=== PATIENT | male | born 1960 | race Hispanic/Latino ===

== ENCOUNTER 2018-01-12 16:38 | Inpatient (IN) | payer BC ==
[2018-01-12 17:58] VITALS: BMI 27.6
[2018-01-12] MEDS ORDERED: Ciprofloxacin 400mg/200ml D5W 400 MG/200 ML BAG IVPB STA (18:46)
[2018-01-12] MEDS ORDERED: metroNIDAZOLE IV 500 mg/100 ml 500 MG/100 ML BAG IVPB STA (18:46)
--- NOTE | 2018-01-12 19:41 | ED PDOC ---
Arrival/HPI - General Chief Complaint: GI Problem Time Seen by Provider: 01/12/18 17:57 Historian: Patient - History of Present Illness Narrative History of Present Illness (Text): 01/12/18 19:34 A 57 year old male presents to the emergency department for further evaluation concerning diverticultits. Patient was seen at [facility] for left lower abdominal pain today. He had labs and a CT done which showed a white count and moderate acute diverticulits with no abscess. Patient was then instructed to come to the emergency room for admission. Patient denies any fever, chills, nausea, vomiting , diarrhea, chest pain, shortness of breath or any other complaints. No history of abdominal surgeries. PMD: Dr. Ronni Medina Grounds Worker: Dr. Kirkpatrick Past Medical History - Provider Review Nursing Documentation Reviewed: Yes - Infectious Disease Hx of Infectious Diseases: None - Cardiac Hx Pacemaker: No - Pulmonary Other/Comment: borderline COPD - HEENT Hx Sinusitis: Yes - Hematological/Oncological Hx Blood Transfusions: No Hx Blood Transfusion Reaction: No - Musculoskeletal/Rheumatological Hx Musculoskeletal Disorders: Yes - Psychiatric Hx Substance Use: No - Anesthesia Hx Anesthesia Reactions: No Hx Malignant Hyperthermia: No Family/Social History - Physician Review Nursing Documentation Reviewed: Yes Family/Social History: No Known Family HX Smoking Status: Unknown If Ever Smoked Hx Alcohol Use: Yes (SOCIALLY) Hx Substance Use: No Allergies/Home Meds Allergies/Adverse Reactions: Allergies prednisone Allergy (Verified 01/12/18 18:32) RASH Home Medications: Home Meds Medication Instructions Recorded Confirmed Dexlansoprazole [Dexilant] 30 mg PO Q48H 08/21/15 08/21/15 Dexlansoprazole [Dexilant] 60 mg PO Q48H 08/21/15 08/21/15 Fluticasone Propionate [Flonase] 2 spray NS DAILY 08/21/15 08/21/15 Fluticasone/Salmeterol 250/50 1 puff IH QAM 08/21/15 08/21/15 [Advair Diskus] Montelukast [Singulair] 10 mg PO QAM 08/21/15 08/21/15 Review of Systems - Physician Review All systems were reviewed & negative as marked: Yes - Review of Systems Constitutional: absent: Fevers, Night Sweats Respiratory: absent: SOB Cardiovascular: absent: Chest Pain Gastrointestinal: Abdominal Pain (left lower abdomen). absent: Diarrhea, Nausea , Vomiting Physical Exam Vital Signs Reviewed: Yes Vital Signs Temp Pulse Resp BP Pulse Ox 01/12/18 20:26 94 H 18 152/70 H 96 01/12/18 17:47 98.2 F 108 H 18 161/99 H 98 Temperature: Afebrile Blood Pressure: Hypertensive Pulse: Tachycardic Respiratory Rate: Normal Appearance: Positive for: Well-Appearing, Non-Toxic, Comfortable Pain Distress: None Mental Status: Positive for: Alert and Oriented X 3 - Systems Exam Head: Present: Atraumatic, Normocephalic Pupils: Present: PERRL Extroacular Muscles: Present: EOMI Conjunctiva: Present: Normal Mouth: Present: Moist Mucous Membranes Neck: Present: Normal Range of Motion Respiratory/Chest: Present: Clear to Auscultation, Good Air Exchange. No: Respiratory Distress, Accessory Muscle Use Cardiovascular: Present: Regular Rate and Rhythm, Normal S1, S2. No: Murmurs Abdomen: Present: Tenderness (LLQ tenderness to palpation), Normal Bowel Sounds. No: Distention, Peritoneal Signs, Rebound, Guarding Back: Present: Normal Inspection Upper Extremity: Present: Normal Inspection. No: Cyanosis, Edema Lower Extremity: Present: Normal Inspection. No: Edema Neurological: Present: GCS=15, CN II-XII Intact, Speech Normal Skin: Present: Warm, Dry, Normal Color. No: Rashes Psychiatric: Present: Alert, Oriented x 3, Normal Insight, Normal Concentration Medical Decision Making ED Course and Treatment: 01/12/18 19:34 Impression: A 57 year old male sent in for diverticulitis. Patient with left lower abdominal pain. No nausea, vomiting or diarrhea. Plan: -- Cipro IV, Flagyl IV -- Reassess and disposition Progress Notes: Outpatient CT A/P : Moderate diverticulitis of the sigmoid colon with associated microperforation but no abscess. Outpatient labs: CBC: WBC 11.1 / Hgb 17 / Hct 50 / Plt 240 Chem: NA 140 / K 3.5 / Cl 106 CO2 23 / BUN 14 / Creat 1.0 / glucose [address] Diaz, who accepts admission to his service. Requests Dr. Mckeon for surgical consult. Bridge orders placed. CAse d/w Dr. Kirkpatrick, who accepts consult and will evaluate the patient in the hospital. Spoke with Ticket Scheduler Kelvin, states he will evaluate patient at bedside. On reevaluation, patient is laying comfortably in no acute distress. Patient has no other complaints at this time. On exam, abdomen remained soft, no distention, mild left lower quadrant tenderness, no guarding. Patient states he fully agrees with and understands discharge plan for inpatient admission. I have given the patient opportunity to ask any additional questions. - Medication Orders Current Medication Orders: Acetaminophen (Tylenol 325mg Tab) 650 mg PO Q6H PRN PRN Reason: Fever >100.4 F Arformoterol Tartrate (Brovana) 15 mcg IH DAILY FRED Budesonide (Pulmicort Respules) 0.5 mg IH DAILY FRED Ciprofloxacin (Cipro 400mg/200ml Dsw) 400 mg in 200 mls @ 133.3 mls/hr IVPB Q12 FRED PRN Reason: Protocol Stop: 01/16/18 11:31 Last Admin: 01/13/18 09:18 Dose: Lactated Ringer's (Lactated Ringer's) 1,000 mls @ 75 mls/hr IV .[id number] [facility] Last Admin: 01/13/18 13:12 Dose: 75 mls/hr eMAR Start Stop Document 01/13/18 13:12 [facility] (Rec: 01/13/18 13:12 [facility]-[id number]) Intravenous Solution Start Date 01/13/18 Start Time 13:12 Metronidazole (Flagyl) 500 mg in 100 mls @ 100 mls/hr IVPB Q8 FRED PRN Reason: Protocol Last Admin: 01/13/18 13:00 Dose: 100 mls/hr eMAR Start Stop Document 01/13/18 13:00 [facility] (Rec: 01/13/18 13:00 [id number]) Intravenous Solution Start Date 01/13/18 Start Time 13:00 End Date 01/13/18 End time 14:00 Total Infusion Time 60 Montelukast Sodium (Singulair) 10 mg PO QAM [facility] Last Admin: 01/13/18 09:19 Dose: 10 mg Discontinued Medications Arformoterol Tartrate (Brovana) 15 mcg IH [id number] [facility] Last Admin: 01/13/18 07:55 Dose: 15 mcg Budesonide (Pulmicort Respules) 0.5 mg IH [id number] FRED Last Admin: 01/13/18 07:55 Dose: 0.5 mg Ciprofloxacin (Cipro 400mg/200ml Dsw) 400 mg in 200 mls @ 133.3 mls/hr IVPB STAT STA PRN Reason: Protocol Stop: 01/12/18 20:16 Last Admin: 01/12/18 21:11 Dose: 133.3 mls/hr eMAR Start Stop Document 01/12/18 21:11 KP (Rec: 01/12/18 21:11 KP [id number]) Intravenous Solution Start Date 01/12/18 Start Time 21:11 Metronidazole (Flagyl) 500 mg in 100 mls @ 100 mls/hr IVPB STAT STA PRN Reason: Protocol Stop: 01/12/18 19:45 Last Admin: 01/12/18 20:22 Dose: 100 mls/hr eMAR Start Stop Document 01/12/18 20:22 RG (Rec: 01/12/18 20:23 RG [id number]) Intravenous Solution Start Date 01/12/18 Start Time 20:23 Ciprofloxacin (Cipro 400mg/200ml Dsw) 400 mg in 200 mls @ 133.3 mls/hr IVPB Q12 FRED PRN Reason: Protocol Stop: 01/16/18 11:31 Metronidazole (Flagyl) 500 mg in 100 mls @ 100 mls/hr IVPB Q6 FRED PRN Reason: Protocol Last Admin: 01/13/18 05:01 Dose: 100 mls/hr eMAR Start Stop Document 01/13/18 05:01 KP (Rec: 01/13/18 05:02 KP [id number]) Intravenous Solution Start Date 01/13/18 Start Time 05:02 Lactated Ringer's (Lactated Ringer's) 1,000 mls @ 125 mls/hr IV .Q8H FRED Last Admin: 01/13/18 05:02 Dose: 125 mls/hr eMAR Start Stop Document 01/13/18 05:02 KP (Rec: 01/13/18 05:02 KP [id number]) Intravenous Solution Start Date 01/13/18 Start Time 05:02 Ketorolac Tromethamine (Toradol) 15 mg IVP STAT STA Stop: 01/12/18 20:25 Last Admin: 01/12/18 20:32 Dose: - PA / CRUCIBLE PACKER / Resident Statement MD/DO has reviewed & agrees with the documentation as recorded. - Scribe Statement The provider has reviewed the documentation as recorded by the Efraínibdiana Nielson Provider Scribe Attestation: All medical record entries made by the Scribe were at my direction and personally dictated by me. I have reviewed the chart and agree that the record accurately reflects my personal performance of the history, physical exam, medical decision making, and the department course for this patient. I have also personally directed, reviewed, and agree with the discharge instructions and disposition. Disposition/Present on Arrival - Present on Arrival Any Indicators Present on Arrival: No History of DVT/PE: No History of Uncontrolled Diabetes: No Urinary Catheter: No History of Decub. Ulcer: No History Surgical Site Infection Following: None - Disposition Have Diagnosis and Disposition been Completed?: Yes Diagnosis: Diverticulitis Disposition: HOSPITALIZED Disposition Time: 19:17 Patient Plan: Admission Patient Problems: Current Active Problems Problem Status Onset Diverticulitis Acute Condition: STABLE
[2018-01-12] MEDS ORDERED: Budesonide 0.5 mg/2 ml Inhal Susp UD IH SCH (20:00)
[2018-01-12] MEDS ORDERED: Arformoterol 15 mcg/2 ml Inh Sol IH SCH (20:00)
[2018-01-12 20:17] LABS: URINE BILIRUBIN NEGATIVE (NEGATIVE); URINE BLOOD TRACE-INTACT (NEGATIVE); URINE GLUCOSE (UA) NEGATIVE (NEGATIVE); URINE LEUKOCYTE ESTERASE NEGATIVE Leu/uL (NEGATIVE); URINE PROTEIN NEGATIVE mg/dL (<30 mg/dL); URINE UROBILINOGEN 0.2 E.U./dL (<1 E.U./dL)
[2018-01-12 20:22] LABS: URINE APPEARANCE CLEAR (CLEAR); URINE COLOR LIGHT YELLOW (YELLOW)
[2018-01-12 20:24] LABS: BASO # 0.04 K/mm3 (0.0-2.0); BASO % 0.3 % (0.0-3.0); EOS # 1.2 (0.0-0.7); EOS % 8.8 % (1.5-5.0); GRAN # 9.06 (1.4-6.5); GRAN % 68.6 % (50.0-68.0); HEMOGLOBIN 16.2 g/dL (14.0-18.0); LYMPH % 14.8 % (22.0-35.0); MEAN CELL VOLUME 93.8 fl (80.0-105.0); MEAN CORPUSCULAR HEMOGLOBIN 33.5 pg (25.0-35.0); MEAN CORPUSCULAR HGB CONC 35.7 g/dl (31.0-37.0); MEAN PLATELET VOLUME 8.6 fl (7.0-11.0); MONO % 7.5 % (1.0-6.0); RBC 4.84 10^6/uL (3.5-6.1); RED CELL DISTRIBUTION WIDTH 12.5 % (11.5-14.5); WHITE BLOOD COUNT 13.2 10^3/ul (4.5-11.0)
[2018-01-12 20:32] LABS: ALB/GLOB RATIO 1.2 (1.1-1.8); ALBUMIN 3.6 g/dL (3.0-4.8); ALT/SGPT 30 U/L (7-56); AST/SGOT 26 U/L (17-59); BLOOD UREA NITROGEN 11 mg/dL (7-21); CALCIUM 9.2 mg/dL (8.4-10.5); GFR AFRICAN-AMERICAN > 60; GFR NON-AFRICAN AMERICAN > 60
[2018-01-12 20:48] LABS: URINE BACTERIA NEG (NEG); URINE EPITHELIAL CELLS 0 - 2 /hpf (0-5); URINE RBC 0 - 2 /hpf (0-2); URINE WBC 0 - 2 /hpf (0-6)
[2018-01-12] MEDS: Lactated Ringer's 1,000 ML IV SCH (21:00)
[2018-01-12] MEDS ORDERED: Ciprofloxacin 400mg/200ml D5W 400 MG/200 ML BAG IVPB SCH (22:00)
--- NOTE | 2018-01-12 23:14 | CP.PCM.CON ---
History of Present Illness - History of Present Illness History of Present Illness: Gen Surg Consult: Dr. Mckeon 57M [place] [facility] after being advised by Josesito SIMENTAL to come to the ER. Patient reports he developed abdominal pain yesterday. States he had a fever of 100.4. Since abdominal pain did not improve he decided to go to urgent care center where they did a CT scan. Patient was found to have acute diverticulitis and was told to come to the ER. At time time of examination patient reported some left lower quadrant abdominal pain. Currently he denies fever/chills, nausea/vomiting. Last colonoscopy done was in 2008, however, patient does not remember results. PMH: as stated above PSH: denies Allergies: NKDA Review of Systems - Review of Systems Review of Systems: 12pt ROS unremarkable, except as stated in HPI Past Patient History - Infectious Disease Hx of Infectious Diseases: None - Past Social History Smoking Status: Unknown If Ever Smoked - CARDIAC Hx Pacemaker: No - PULMONARY Other/Comment: borderline COPD - HEENT Hx Sinusitis: Yes - HEMATOLOGICAL/ONCOLOGICAL Hx Blood Transfusions: No Hx Blood Transfusion Reaction: No - MUSCULOSKELETAL/RHEUMATOLOGICAL Hx Musculoskeletal Disorders: Yes - PSYCHIATRIC Hx Substance Use: No - SURGICAL HISTORY Hx Surgeries: Yes - ANESTHESIA Hx Anesthesia Reactions: No Hx Malignant Hyperthermia: No Meds Allergies/Adverse Reactions: Allergies Allergy/AdvReac Type Severity Reaction Status Date / Time prednisone Allergy RASH Verified 01/12/18 18:32 - Medications Medications: Current Medications Acetaminophen (Tylenol 325mg Tab) 650 mg PO Q6H PRN PRN Reason: Fever >100.4 F Arformoterol Tartrate (Brovana) 15 mcg IH [id number] FRED Budesonide (Pulmicort Respules) 0.5 mg IH [id number] FRED Metronidazole (Flagyl) 500 mg in 100 mls @ 100 mls/hr IVPB Q6 FRED PRN Reason: Protocol Lactated Ringer's (Lactated Ringer's) 1,000 mls @ 125 mls/hr IV .Q8H FRED Ciprofloxacin (Cipro 400mg/200ml Dsw) 400 mg in 200 mls @ 133.3 mls/hr IVPB Q12 FRED PRN Reason: Protocol Stop: 01/16/18 11:31 Montelukast Sodium (Singulair) 10 mg PO QAM FRED Physical Exam - Constitutional Appears: Well, No Acute Distress - Head Exam Head Exam: NORMOCEPHALIC - Eye Exam Eye Exam: EOMI, Normal appearance - ENT Exam ENT Exam: Mucous Membranes Moist - Respiratory Exam Respiratory Exam: NORMAL BREATHING PATTERN - Cardiovascular Exam Cardiovascular Exam: +S1, +S2 - GI/Abdominal Exam GI & Abdominal Exam: Soft, Tenderness - Extremities Exam Extremities exam: Negative for: calf tenderness - Neurological Exam Neurological exam: Alert, Oriented x3 - Psychiatric Exam Psychiatric exam: Normal Mood - Skin Skin Exam: Dry, Normal Color, Warm Results - Vital Signs Recent Vital Signs: Last Vital Signs Temp 98.2 F 01/12/18 17:47 Pulse 94 H 01/12/18 20:26 Resp 18 01/12/18 20:26 BP 152/70 H 01/12/18 20:26 Pulse Ox 96 01/12/18 20:26 - Labs Result Diagrams: 01/12/18 20:10 01/12/18 20:10 Labs: Laboratory Results - last 24 hr 01/12/18 01/12/18 01/12/18 20:10 20:10 20:10 WBC 13.2 H RBC 4.84 Hgb 16.2 Hct 45.4 MCV 93.8 MCH 33.5 MCHC 35.7 RDW 12.5 Plt Count 201 MPV 8.6 Gran % 68.6 H Lymph % (Auto) 14.8 L Graham % (Auto) 7.5 H Eos % (Auto) 8.8 H Baso % (Auto) 0.3 Gran # 9.06 H Lymph # (Auto) 2.0 Graham # (Auto) 1.0 H Eos # (Auto) 1.2 H Baso # (Auto) 0.04 Sodium 139 Potassium 3.8 Chloride 104 Carbon Dioxide 26 Anion Gap 13 BUN 11 Creatinine 0.9 Est GFR ( Amer) > 60 Est GFR (Non-Af Amer) > 60 Random Glucose 89 Calcium 9.2 Total Bilirubin 1.0 AST 26 ALT 30 Alkaline Phosphatase 55 Total Protein 6.6 Albumin 3.6 Globulin 3.0 Albumin/Globulin Ratio 1.2 Urine Color Light yellow Urine Appearance Clear Urine pH 6.0 Ur Specific [place] <= 1.005 Urine Protein Negative Urine Glucose (UA) Negative Urine Ketones 40 H Urine Blood Trace-intact H Urine Nitrate Negative Urine Bilirubin Negative Urine Urobilinogen 0.2 Ur Leukocyte Esterase Negative Urine RBC 0 - 2 Urine WBC 0 - 2 Ur Epithelial Cells 0 - 2 Urine Bacteria Neg Assessment & Plan - Assessment and Plan (Free Text) Assessment: 57M with diverticulitis Plan: NPO IVF Abx Analgesic F/u GI recs Further recs per Dr. Mike Melgar PGY2
[2018-01-12] MEDS: metroNIDAZOLE IV 500 mg/100 ml 500 MG/100 ML BAG IVPB SCH (23:20)
[2018-01-13] MEDS: metroNIDAZOLE IV 500 mg/100 ml 500 MG/100 ML BAG IVPB SCH ×3 (05:01→22:28)
[2018-01-13] MEDS: Lactated Ringer's 1,000 ML IV SCH ×2 (05:02→13:12)
[2018-01-13] MEDS: Ciprofloxacin 400mg/200ml D5W 400 MG/200 ML BAG IVPB SCH ×2 (06:12→09:18)
[2018-01-13 07:24] LABS: HEMOGLOBIN 15.2 g/dL (14.0-18.0); MEAN CELL VOLUME 92.6 fl (80.0-105.0); MEAN CORPUSCULAR HEMOGLOBIN 33.3 pg (25.0-35.0); MEAN CORPUSCULAR HGB CONC 35.9 g/dl (31.0-37.0); MEAN PLATELET VOLUME 8.5 fl (7.0-11.0); RBC 4.57 10^6/uL (3.5-6.1); RED CELL DISTRIBUTION WIDTH 12.5 % (11.5-14.5); WHITE BLOOD COUNT 10.1 10^3/ul (4.5-11.0)
--- NOTE | 2018-01-13 07:41 | CP.PCM.PN ---
Subjective - Date & Time of Evaluation Date of Evaluation: 01/13/18 Time of Evaluation: 07:38 - Subjective Subjective: Surgery Progress Note: Patient seen and examined at bedside. No acute events overnight. Reports abdominal pain. Denies fever, chills, nausea, vomiting. Objective - Vital Signs/Intake and Output Vital Signs (last 24 hours): Temp Pulse Resp BP Pulse Ox 98.2 F 94 H 18 152/70 H 96 01/12/18 17:47 01/12/18 20:26 01/12/18 21:06 01/12/18 20:26 01/12/18 20:26 Intake and Output: 01/13/18 01/13/18 06:59 18:59 Intake Total 0 Balance 0 - Medications Medications: Current Medications Acetaminophen (Tylenol 325mg Tab) 650 mg PO Q6H PRN PRN Reason: Fever >100.4 F Arformoterol Tartrate (Brovana) 15 mcg IH [id number] FRED Budesonide (Pulmicort Respules) 0.5 mg IH [id number] FRED Metronidazole (Flagyl) 500 mg in 100 mls @ 100 mls/hr IVPB Q6 FRED PRN Reason: Protocol Last Admin: 01/13/18 05:01 Dose: 100 mls/hr Lactated Ringer's (Lactated Ringer's) 1,000 mls @ 125 mls/hr IV .Q8H FRED Last Admin: 01/13/18 05:02 Dose: 125 mls/hr Ciprofloxacin (Cipro 400mg/200ml Dsw) 400 mg in 200 mls @ 133.3 mls/hr IVPB Q12 FRED PRN Reason: Protocol Stop: 01/16/18 11:31 Last Admin: 01/13/18 06:12 Dose: 133.3 mls/hr Montelukast Sodium (Singulair) 10 mg PO QAM FRED - Labs Labs: 01/13/18 06:20 01/12/18 20:10 - Constitutional Appears: Non-toxic, No Acute Distress - Head Exam Head Exam: ATRAUMATIC, NORMOCEPHALIC - Eye Exam Eye Exam: EOMI, PERRL. absent: Conjunctival injection, Scleral icterus Pupil Exam: NORMAL ACCOMODATION, PERRL. absent: Fixed, Irregular, Unequal - ENT Exam ENT Exam: Mucous Membranes Moist - Neck Exam Neck Exam: Full ROM - Respiratory Exam Respiratory Exam: Clear to Ausculation Bilateral, NORMAL BREATHING PATTERN. absent: Accessory Muscle Use, Rhonchi, Wheezes, Stridor - Cardiovascular Exam Cardiovascular Exam: RRR, +S1, +S2. absent: Murmur - GI/Abdominal Exam GI & Abdominal Exam: Soft, Tenderness, Normal Bowel Sounds. absent: Guarding, Rigid, Organomegaly, Rebound - Extremities Exam Extremities Exam: Normal Inspection - Back Exam Back Exam: NORMAL INSPECTION - Neurological Exam Neurological Exam: Alert, Awake, Oriented x3 - Psychiatric Exam Psychiatric exam: Normal Affect, Normal Mood - Skin Skin Exam: Dry, Normal Color, Warm Assessment and Plan - Assessment and Plan (Free Text) Assessment: 57M with diverticulitis: NPO. IVF Continue with IV Abx Analgesic F/u GI recs Will discuss with Dr. Mckeon
--- NOTE | 2018-01-13 07:52 | CP.PCM.PN ---
Subjective - Date & Time of Evaluation Date of Evaluation: 01/13/18 Time of Evaluation: 07:49 - Subjective Subjective: Surgery Progress Note: Patient seen and examined at bedside. Pt's blood sugar low overnight, 38, given orange juice. Denies fever, chills, nausea, vomiting, diarrhea, wound drainage. Objective - Vital Signs/Intake and Output Vital Signs (last 24 hours): Temp Pulse Resp BP Pulse Ox 98.2 F 94 H 18 152/70 H 96 01/12/18 17:47 01/12/18 20:26 01/12/18 21:06 01/12/18 20:26 01/12/18 20:26 Intake and Output: 01/13/18 01/13/18 06:59 18:59 Intake Total 0 Balance 0 - Medications Medications: Current Medications Acetaminophen (Tylenol 325mg Tab) 650 mg PO Q6H PRN PRN Reason: Fever >100.4 F Arformoterol Tartrate (Brovana) 15 mcg IH [id number] FRED Budesonide (Pulmicort Respules) 0.5 mg IH [id number] FRED Metronidazole (Flagyl) 500 mg in 100 mls @ 100 mls/hr IVPB Q6 FRED PRN Reason: Protocol Last Admin: 01/13/18 05:01 Dose: 100 mls/hr Lactated Ringer's (Lactated Ringer's) 1,000 mls @ 125 mls/hr IV .Q8H FRED Last Admin: 01/13/18 05:02 Dose: 125 mls/hr Ciprofloxacin (Cipro 400mg/200ml Dsw) 400 mg in 200 mls @ 133.3 mls/hr IVPB Q12 FRED PRN Reason: Protocol Stop: 01/16/18 11:31 Last Admin: 01/13/18 06:12 Dose: 133.3 mls/hr Montelukast Sodium (Singulair) 10 mg PO QAM FRED - Labs Labs: 01/13/18 06:20 01/12/18 20:10 - Constitutional Appears: Non-toxic, No Acute Distress - Head Exam Head Exam: ATRAUMATIC, NORMOCEPHALIC - Eye Exam Eye Exam: EOMI, PERRL. absent: Conjunctival injection, Scleral icterus Pupil Exam: NORMAL ACCOMODATION, PERRL. absent: Irregular, Unequal - ENT Exam ENT Exam: Mucous Membranes Moist - Neck Exam Neck Exam: Full ROM - Respiratory Exam Respiratory Exam: Clear to Ausculation Bilateral, NORMAL BREATHING PATTERN. absent: Rales, Rhonchi, Wheezes - Cardiovascular Exam Cardiovascular Exam: RRR, +S1, +S2. absent: Murmur - GI/Abdominal Exam GI & Abdominal Exam: Soft, Normal Bowel Sounds. absent: Tenderness - Extremities Exam Extremities Exam: absent: Calf Tenderness Additional comments: LLE wound noted: no crepitus, fluctuance or discharge appreciated. - Back Exam Back Exam: NORMAL INSPECTION - Neurological Exam Neurological Exam: Alert, Awake, Oriented x3 - Psychiatric Exam Psychiatric exam: Normal Affect, Normal Mood - Skin Skin Exam: Dry, Normal Color, Warm Assessment and Plan - Assessment and Plan (Free Text) Assessment: 51M with chronic left lower extremity wound: -local wound care -apply medihoney to affected site -compression stockings -Will discuss with Dr. Mckeon
[2018-01-13 07:53] LABS: ALB/GLOB RATIO 1.2 (1.1-1.8); ALBUMIN 3.3 g/dL (3.0-4.8); ALT/SGPT 32 U/L (7-56); AST/SGOT 18 U/L (17-59); BLOOD UREA NITROGEN 11 mg/dL (7-21); GFR AFRICAN-AMERICAN > 60; GFR NON-AFRICAN AMERICAN > 60
[2018-01-13 08:27] VITALS: RESP 20
[2018-01-13] MEDS ORDERED: Arformoterol 15 mcg/2 ml Inh Sol IH SCH (10:00)
[2018-01-13] MEDS ORDERED: Budesonide 0.5 mg/2 ml Inhal Susp UD IH SCH (10:00)
[2018-01-13] MEDS ORDERED: Fluticasone-Salmeterol 250-50mcg Diskus IH SCH (10:00)
--- NOTE | 2018-01-13 16:03 | CP.PCM.CON ---
<Sharmila Gooden - Last Filed: 01/13/18 16:03> History of Present Illness - History of Present Illness History of Present Illness: S&E at bedside earlier today, chart reviewed. Request for GI consult is for diverticulitis. HPI: This is a 57-year-old male with a past medical history of GERD, diverticulosis came to the emergency room with the recommendation of jag Villeda, patient reports complaining of burning on urination no real abdominal pain [facility] had severe tenderness on abdominal examination. He rates it from 10 over 10. He denies any history of nausea, vomiting or change in bowel habits. His last bowel movement today and it was formed stool with no melena or bright red blood. He does report having a fever of 100.4. At [facility] he was sent for CT scan of abdomen and pelvis where he reports he has done [facility] urgent care and was reported to have diverticulitis with microperforation in the sigmoid colon. Patient denies any contributing factors such as oral intake, only thing he recalls eating is Indonesian food, had shrimp alicea mien, he does report that he has been finding and infection since October. He's been treated with steroids and Augmentin. He is currently nothing by mouth in no acute overnight events reported. He does report improvement of abdominal pain. His last colonoscopy was 2008 he was found to have hemorrhoids and diverticulosis. Last endoscopy was 08/2015, esophagus appeared like Leal's esophagus although the esophageal biopsies was negative for intestinal metaplasia. He was found to have a gastric polyp that was reported to be a fundic gland polyp, gastritis with gastric biopsy showing chronic inflammation but no intestinal metaplasia or H. pylori. Past medical history: Diverticulosis, GERD, internal hemorrhoids, , borderline COPD,superficial skin cancer, gastric polyp Past surgical history:sinus surgery Allergies: Prednisone Medications: Reviewed as per MAR Social history: No history of smoking, drinks alcohol socially, denies illicit drugs Family history: Noncontributory ROS: Systems reviewed with positive finding see HPI. Past Patient History - Infectious Disease Hx of Infectious Diseases: None - Past Social History Smoking Status: Unknown If Ever Smoked - CARDIAC Hx Pacemaker: No - PULMONARY Other/Comment: borderline COPD - NEUROLOGICAL Hx Neurological Disorder: No - HEENT Hx Sinusitis: Yes - RENAL Hx Chronic Kidney Disease: No - ENDOCRINE/METABOLIC Hx Endocrine Disorders: No - HEMATOLOGICAL/ONCOLOGICAL Hx Blood Transfusions: No Hx Blood Transfusion Reaction: No - INTEGUMENTARY Hx Dermatological Problems: No - MUSCULOSKELETAL/RHEUMATOLOGICAL Hx Musculoskeletal Disorders: Yes - GASTROINTESTINAL Hx Gastrointestinal Disorders: No - GENITOURINARY/GYNECOLOGICAL Hx Genitourinary Disorders: No - PSYCHIATRIC Hx Substance Use: No - SURGICAL HISTORY Hx Surgeries: Yes - ANESTHESIA Hx Anesthesia Reactions: No Hx Malignant Hyperthermia: No Meds Allergies/Adverse Reactions: Allergies Allergy/AdvReac Type Severity Reaction Status Date / Time prednisone Allergy RASH Verified 01/12/18 18:32 - Medications Medications: Current Medications Acetaminophen (Tylenol 325mg Tab) 650 mg PO Q6H PRN PRN Reason: Fever >100.4 F Arformoterol Tartrate (Brovana) 15 mcg IH DAILY FRED Budesonide (Pulmicort Respules) 0.5 mg IH DAILY [facility]ED Ciprofloxacin (Cipro 400mg/200ml Dsw) 400 mg in 200 mls @ 133.3 mls/hr IVPB Q12 [facility]ED PRN Reason: Protocol Stop: 01/16/18 11:31 Last Admin: 01/13/18 09:18 Dose: Not Given Lactated Ringer's (Lactated Ringer's) 1,000 mls @ 75 mls/hr IV .[id number] [facility]ED Last Admin: 01/13/18 13:12 Dose: 75 mls/hr Metronidazole (Flagyl) 500 mg in 100 mls @ 100 mls/hr IVPB Q8 FRED PRN Reason: Protocol Last Admin: 01/13/18 13:00 Dose: 100 mls/hr Montelukast Sodium (Singulair) 10 mg PO QAM [facility]ED Last Admin: 01/13/18 09:19 Dose: 10 mg Physical Exam - Constitutional Appears: No Acute Distress - Head Exam Head Exam: NORMOCEPHALIC - Eye Exam Eye Exam: Normal appearance. absent: Scleral icterus - ENT Exam ENT Exam: Mucous Membranes Moist - Neck Exam Neck exam: Positive for: Normal Inspection - Respiratory Exam Respiratory Exam: Clear to Auscultation Bilateral, NORMAL BREATHING PATTERN. absent: Respiratory Distress - Cardiovascular Exam Cardiovascular Exam: +S1, +S2 - GI/Abdominal Exam GI & Abdominal Exam: Normal Bowel Sounds, Soft. absent: Guarding, Organomegaly , Rebound, Tenderness - Extremities Exam Extremities exam: Positive for: pedal pulses present. Negative for: calf tenderness, pedal edema - Neurological Exam Neurological exam: Alert, Oriented x3 - Skin Skin Exam: Dry, Warm Results - Vital Signs Recent Vital Signs: Last Vital Signs Temp 99 F 01/13/18 08:25 Pulse 94 H 01/13/18 08:25 Resp 20 01/13/18 08:25 BP 123/84 01/13/18 08:25 Pulse Ox 96 01/13/18 08:25 - Labs Result Diagrams: 01/13/18 06:20 01/13/18 06:20 Labs: Laboratory Results - last 24 hr 01/12/18 01/12/18 01/12/18 20:10 20:10 20:10 WBC 13.2 H RBC 4.84 Hgb 16.2 Hct 45.4 MCV 93.8 MCH 33.5 MCHC 35.7 RDW 12.5 Plt Count 201 MPV 8.6 Gran % 68.6 H Lymph % (Auto) 14.8 L Sibley % (Auto) 7.5 H Eos % (Auto) 8.8 H Baso % (Auto) 0.3 Gran # 9.06 H Lymph # (Auto) 2.0 Sibley # (Auto) 1.0 H Eos # (Auto) 1.2 H Baso # (Auto) 0.04 Sodium 139 Potassium 3.8 Chloride 104 Carbon Dioxide 26 Anion Gap 13 BUN 11 Creatinine 0.9 Est GFR ( Amer) > 60 Est GFR (Non-Af Amer) > 60 Random Glucose 89 Calcium 9.2 Total Bilirubin 1.0 AST 26 ALT 30 Alkaline Phosphatase 55 Total Protein 6.6 Albumin 3.6 Globulin 3.0 Albumin/Globulin Ratio 1.2 Urine Color Light yellow Urine Appearance Clear Urine pH 6.0 Ur Specific Eldridge <= 1.005 Urine Protein Negative Urine Glucose (UA) Negative Urine Ketones 40 H Urine Blood Trace-intact H Urine Nitrate Negative Urine Bilirubin Negative Urine Urobilinogen 0.2 Ur Leukocyte Esterase Negative Urine RBC 0 - 2 Urine WBC 0 - 2 Ur Epithelial Cells 0 - 2 Urine Bacteria Neg 01/13/18 01/13/18 06:20 06:20 WBC 10.1 D RBC 4.57 Hgb 15.2 Hct 42.3 MCV 92.6 MCH 33.3 MCHC 35.9 RDW 12.5 Plt Count 196 MPV 8.5 Gran % Lymph % (Auto) Sibley % (Auto) Eos % (Auto) Baso % (Auto) Gran # Lymph # (Auto) Sibley # (Auto) Eos # (Auto) Baso # (Auto) Sodium 140 Potassium 3.5 L Chloride 106 Carbon Dioxide 22 Anion Gap 15 BUN 11 Creatinine 0.8 Est GFR ( Amer) > 60 Est GFR (Non-Af Amer) > 60 Random Glucose 107 Calcium 9.0 Total Bilirubin 1.0 AST 18 ALT 32 Alkaline Phosphatase 49 Total Protein 6.0 Albumin 3.3 Globulin 2.7 Albumin/Globulin Ratio 1.2 Urine Color Urine Appearance Urine pH Ur Specific Eldridge Urine Protein Urine Glucose (UA) Urine Ketones Urine Blood Urine Nitrate Urine Bilirubin Urine Urobilinogen Ur Leukocyte Esterase Urine RBC Urine WBC Ur Epithelial Cells Urine Bacteria Assessment & Plan - Assessment and Plan (Free Text) Assessment: Assessment: Acute diverticulitis with microperforation GERD History of gastric polyp History of COPD Plan: Continue IV antibiotics on Cipro and Flagyl Will start clear liquid diet On IV fluids Monitor bowel movements May benefit from colonoscopy in 6-8 weeks times when diverticulitis resolves Surgical follow-up Thank you for this consult and for allowing us to participate in your patient's care, further recommendations based on clinical course. Seen and discussed with Dr. Kirkpatrick. <Marleni Kirkpatrick V - Last Filed: 01/13/18 21:34> Meds - Medications Medications: Current Medications Acetaminophen (Tylenol 325mg Tab) 650 mg PO Q6H PRN PRN Reason: Fever >100.4 F Arformoterol Tartrate (Brovana) 15 mcg IH DAILY FRDE Budesonide (Pulmicort Respules) 0.5 mg IH DAILY FRED Ciprofloxacin (Cipro 400mg/200ml Dsw) 400 mg in 200 mls @ 133.3 mls/hr IVPB Q12 FRED PRN Reason: Protocol Stop: 01/16/18 11:31 Last Admin: 01/13/18 09:18 Dose: Not Given Lactated Ringer's (Lactated Ringer's) 1,000 mls @ 75 mls/hr IV .[id number] FRED Last Admin: 01/13/18 13:12 Dose: 75 mls/hr Metronidazole (Flagyl) 500 mg in 100 mls @ 100 mls/hr IVPB Q8 FRED PRN Reason: Protocol Last Admin: 01/13/18 13:00 Dose: 100 mls/hr Montelukast Sodium (Singulair) 10 mg PO QAM [facility] Last Admin: 01/13/18 09:19 Dose: 10 mg Results - Vital Signs Recent Vital Signs: Last Vital Signs Temp 97.9 F 01/13/18 14:00 Pulse 92 H 01/13/18 14:00 Resp 20 01/13/18 14:00 BP 131/89 01/13/18 14:00 Pulse Ox 95 01/13/18 14:00 - Labs Result Diagrams: 01/13/18 06:20 01/13/18 06:20 Labs: Laboratory Results - last 24 hr 01/13/18 01/13/18 06:20 06:20 WBC 10.1 D RBC 4.57 Hgb 15.2 Hct 42.3 MCV 92.6 MCH 33.3 MCHC 35.9 RDW 12.5 Plt Count 196 MPV 8.5 Sodium 140 Potassium 3.5 L Chloride 106 Carbon Dioxide 22 Anion Gap 15 BUN 11 Creatinine 0.8 Est GFR ( Amer) > 60 Est GFR (Non-Af Amer) > 60 Random Glucose 107 Calcium 9.0 Total Bilirubin 1.0 AST 18 ALT 32 Alkaline Phosphatase 49 Total Protein 6.0 Albumin 3.3 Globulin 2.7 Albumin/Globulin Ratio 1.2 Attending/Attestation - Attestation I have personally seen and examined this patient.: Yes I have fully participated in the care of the patient.: Yes I have reviewed all pertinent clinical information: Yes Notes (Text): This is an addendum to GI consult report dictated by Sharmila Gooden APN.The patient was seen and examined earlier. Medical records, lab studies, imagings were reviewed. Last 24 hours events reviewed. Agreed with the above treatment plan as outlined in Sharmila Gooden APN's notes with the addition of the following 01/13/18 21:34
--- NOTE | 2018-01-14 03:39 | HP ---
DATE OF EXAM: 01/13/2018 CHIEF COMPLAINT AND HISTORY OF PRESENT ILLNESS: This is a 57-year-old male who is coming into the hospital with abdominal pain. He states he had gone to an urgent care center for evaluation. The patient
[2018-01-14] MEDS: metroNIDAZOLE IV 500 mg/100 ml 500 MG/100 ML BAG IVPB SCH ×2 (05:13→13:49)
--- NOTE | 2018-01-14 07:30 | CP.PCM.PN ---
Subjective - Date & Time of Evaluation Date of Evaluation: 01/14/18 Time of Evaluation: 07:27 - Subjective Subjective: Surgery Pt seen. No acute events. Denies abd pain/nausea/vomiting/diarrhea/chest pain. TOlerating diet. + void. + ambulate Objective - Vital Signs/Intake and Output Vital Signs (last 24 hours): Temp Pulse Resp BP Pulse Ox 97.9 F 92 H 20 131/89 95 01/13/18 14:00 01/13/18 14:00 01/13/18 14:00 01/13/18 14:00 01/13/18 14:00 Intake and Output: 01/14/18 01/14/18 06:59 18:59 Intake Total 240 Balance 240 - Medications Medications: Current Medications Acetaminophen (Tylenol 325mg Tab) 650 mg PO Q6H PRN PRN Reason: Fever >100.4 F Arformoterol Tartrate (Brovana) 15 mcg IH DAILY [facility] Budesonide (Pulmicort Respules) 0.5 mg IH DAILY [facility] Lactated Ringer's (Lactated Ringer's) 1,000 mls @ 75 mls/hr IV .[id number] [facility] Last Admin: 01/13/18 13:12 Dose: 75 mls/hr Metronidazole (Flagyl) 500 mg in 100 mls @ 100 mls/hr IVPB Q8 FRED PRN Reason: Protocol Last Admin: 01/14/18 05:13 Dose: 100 mls/hr Ceftriaxone Sodium (Rocephin 1 Gram Ivpb) 1 gm in 100 mls @ 100 mls/hr IVPB DAILY [facility] PRN Reason: Protocol Montelukast Sodium (Singulair) 10 mg PO QAM [facility] Last Admin: 01/13/18 09:19 Dose: 10 mg - Labs Labs: 01/13/18 06:20 01/13/18 06:20 - Constitutional Appears: No Acute Distress - Head Exam Head Exam: ATRAUMATIC, NORMAL INSPECTION, NORMOCEPHALIC - Eye Exam Eye Exam: EOMI, Normal appearance, PERRL Pupil Exam: NORMAL ACCOMODATION, PERRL - ENT Exam ENT Exam: Mucous Membranes Moist, Normal Exam - Neck Exam Neck Exam: Full ROM, Normal Inspection. absent: Lymphadenopathy - Respiratory Exam Respiratory Exam: Clear to Ausculation Bilateral, NORMAL BREATHING PATTERN - Cardiovascular Exam Cardiovascular Exam: REGULAR RHYTHM, +S1, +S2. absent: Murmur - GI/Abdominal Exam GI & Abdominal Exam: Soft, Normal Bowel Sounds. absent: Distended, Firm, Guarding, Rigid, Tenderness - Extremities Exam Extremities Exam: Full ROM, Normal Capillary Refill, Normal Inspection. absent : Joint Swelling, Pedal Edema - Back Exam Back Exam: NORMAL INSPECTION - Neurological Exam Neurological Exam: Alert, Awake, CN II-XII Intact, Normal Gait, Oriented x3 - Psychiatric Exam Psychiatric exam: Normal Affect, Normal Mood - Skin Skin Exam: Dry, Intact, Normal Color, Warm Assessment and Plan - Assessment and Plan (Free Text) Assessment: 57M with non complicated asymptomatic diverticulitis: improved Diet per GI OK to DC for surgical standpoint when patient tolerates soft diet Call to visit Dr. Mckeon (Surgeon) office after colonoscopy to discuss possibly scheduling for surgery to prevent future diverticulitis attack. After first diverticulitis attack there is 20% chance of recurrence. After second attack there is 50% change of recurrence. Low fiber , soft diet for first 1-2 month until colonoscopy. High fiber diet after colonoscopy Will discuss with Dr. Mckeon
[2018-01-14 07:59] VITALS: O2SAT 97
[2018-01-14] MEDS ORDERED: cefTRIAXone 1 gm 1 GM/100 ML BAG IVPB SCH (10:00)
[2018-01-14] MEDS: Lactated Ringer's 1,000 ML IV SCH (11:06)
[2018-01-14 16:13] VITALS: BP 167/111; PULSE 91; TEMP 98.2
--- NOTE | 2018-01-14 23:49 | PN ---
DATE: 01/14/2018 SUBJECTIVE: This patient was seen and evaluated earlier today. Patient is tolerating the diet. The diet has been advanced to full-liquid diet. PHYSICAL EXAMINATION: VITAL SIGNS: Temperature is 97.7, pulse 86, blood pressure is 122/86, respirations 20. HEENT: Atraumatic, anicteric. NECK: Supple. HEART: S1, S2 heard. LUNGS: Bilateral air entry present. ABDOMEN: Soft. There is no tenderness. EXTREMITIES: No edema, no cyanosis. NEUROLOGIC: Alert, oriented. Moves all the extremities. LABORATORY DATA: Hemoglobin 15.2, hematocrit 42. There is no recent labs today. IMPRESSION: This 57-year-old patient was admitted with acute diverticulitis, microperforation; on antibiotics, clinically improving well. PLAN: To complete the antibiotic course of 10 to 14 days. Patient would benefit from the elective colonoscopy and surgical followup. The need for surgery will be decided the clinical course of the patient since this is the first episode with a small perforation. Patient has history of polycythemia. Patient is being followed by Dr. Carey. I discussed with the patient at length. I advised the patient to come back to the ER if he has any worsening of the symptoms. Slowly advance the diet. Thank you very much for allowing us to participate in the care of the patient. Marleni Kirkpatrick MD
--- NOTE | 2018-01-15 06:52 | CON ---
DATE: 01/14/2018 LOCATION: Patient is in bed, was seen earlier this morning in room 566 bed 1. CHIEF COMPLAINT: Abdominal pain times several days. HISTORY OF PRESENT ILLNESS: This is a 57-year-old male who has a history of diverticulosis, chronic obstructive lung disease, gastric polyps, GERD, who was seen as an outpatient for his abdominal pain, had a CAT scan as an outpatient which showed acute diverticulitis. Infectious Disease consultation requested. Patient states he has low-grade fevers. No shortness of breath. He did have chills. There was abdominal pain, more so on the left lower quadrant. No dysuria or frequency. No headaches or blurry vision. PAST MEDICAL HISTORY: Significant for GERD, diverticulosis, chronic obstructive lung disease, gastric polyp. PAST SURGICAL HISTORY: Noncontributory. ALLERGIES: PREDNISONE. MEDICATIONS AT HOME: Included patient was started as outpatient on Cipro and Flagyl. Patient is on Singulair and inhaler. 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 No travel history. PHYSICAL EXAMINATION: GENERAL: Patient is in bed. VITAL SIGNS: Temperature is 99, T-max at home was 100.4, heart rate of 108, respiratory rate of 20, blood pressure is 131/80. HEENT: Unremarkable. NECK: Supple. LUNGS: Have decreased breath sounds. HEART: Normal S1, S2. ABDOMEN: Soft, nontender. LABORATORY DATA: Reveals the patient to have a white count of 13,200, hemoglobin of 16, platelets of 201. Chemistry reveals BUN of 11, creatinine of 0.9. Urinalysis is noted. Microbiology and blood cultures are negative. ASSESSMENT: This is a 57-year-old male with gastroesophageal reflux disease, diverticulosis, chronic obstructive lung disease, gastric bypass, who is admitted with leukocytosis, tachycardia, low-grade fevers and abdominal pain with a CAT scan as an outpatient done. PLAN: Sepsis with acute diverticulitis. Has been on Cipro and Flagyl. Would recommend Zosyn. Because of his age of 57, recommend an human immunodeficiency virus test. The cultures as far are negative. We will check on final culture results and clinical response. We will follow with you. Ronni Willams MD [facility] # [id number]
--- NOTE | 2018-01-15 17:11 | DS ---
HISTORY OF PRESENT ILLNESS: The patient has no complaints of any chest pain. No shortness of breath. No headaches. He initially was admitted to the hospital because of diverticulitis. The patient has improvement of the symptoms. He is tolerating his diet. He is ambulating. He was seen by Surgery and GI. The patient was advised to get colonoscopy as an outpatient once he improved. He tolerated his diet and going to be discharged to home to follow up as an outpatient. PHYSICAL EXAMINATION VITAL SIGNS: Temperature is 98.2, pulse of 91, blood pressure 167/111, respirations 20. GENERAL: The patient is lying in bed, flat, comfortable. HEENT: No oral lesion. Anicteric sclerae. Moist mucosa. NECK: No JVD, adenopathy, or thyromegaly. CARDIOVASCULAR: S1 and S2, regular. No murmurs, rubs, or gallops. LUNGS: Clear to auscultation bilaterally. No wheeze, rales, or rhonchi. ABDOMEN: Bowel sounds are positive. Soft, nontender and nondistended. EXTREMITIES: No cyanosis, clubbing or edema. DISCHARGE DIAGNOSIS: Acute sigmoid diverticulitis. PLAN: The patient is currently on Flagyl and Rocephin, this will be continued. He is seen by Infectious Disease as well. The patient is currently comfortable. He has his medications switched over to oral antibiotics. He is going to get Tylenol and continue with Brovana. CONDITION: Stable. ACTIVITIES: Increase as tolerated. Follow with Dr. Mckeon and Dr. Kirkpatrick. He is advised about getting a colonoscopy. He will follow up with Dr. Diaz and Dr. Medina discharge. Carl Diaz MD
== END 2018-01-14 18:39 | disposition home or self-care (01) | DRG 392 ==
LOC: ED 16:38 → ERH 19:17 → 5RNO 20:48
PROVIDERS: ADMIT Internal Medicine Nephrology; ATTEND Internal Medicine Nephrology
DX: K57.20 Diverticulitis of large intestine with perforation and abscess without bleeding (principal); D75.1 Secondary polycythemia; K31.7 Polyp of stomach and duodenum; K21.9 Gastro-esophageal reflux disease without esophagitis; J44.9 Chronic obstructive pulmonary disease, unspecified; K64.8 Other hemorrhoids; Z85.828 Personal history of other malignant neoplasm of skin